=== PATIENT | male | born 1965 | race Caucasian/White ===

== ENCOUNTER 2017-12-20 15:57 | Emergency (ER) | payer OTHER ==
[~2017-12-20] VITALS: Ht 177.8 cm; Wt 113.4 kg
[~2017-12-20 15:57] MED LIST: CETI5TAB5 PO; FLNIN NAE; MULT-506 PO; OMEP20TA14 PO
[2017-12-20 16:05] VITALS: TEMP 36.6; Ht 177.8 cm; Wt 113.4 kg
[2017-12-20] MEDS ORDERED: XYLOCAINE 1%/SOD BICARB 20 ML VIAL INFIL STA (16:15)
[2017-12-20] MEDS ORDERED: FLUT0.15 NAE (16:27)
[2017-12-20] MEDS ORDERED: CETI-41 PO (16:27)
[2017-12-20] MEDS ORDERED: MoRPHine SULFATE 2 MG/ML CARP IV STA (17:26)
[2017-12-20] MEDS ORDERED: HYDROCODONE/ACETAMIN 5/325MG TAB PO ONE (17:30)
[2017-12-20] MEDS ORDERED: CEPH500C PO (17:37)
[2017-12-20] MEDS ORDERED: HYDR-5688 PO (17:37)
[2017-12-20] MEDS ORDERED: CEPHALEXIN 500MG HOME PACK 1 EA BTL PO ONE (17:45)
[2017-12-20] MEDS ORDERED: NORCO 5/325MG HOME PACK PO ONE (17:45)
[2017-12-20 17:49] VITALS: BP 147/92; PULSE 84; O2SAT 96
[2017-12-20] MEDS ORDERED: CEFAZOLIN SOD 1000MG/7.5 ML IV PUSH IV STA (17:51)
--- NOTE | 2017-12-20 18:01 | DIAGNOSTIC IMAGING REPORT ---
L FINGER(S) MIN 2 VIEWS ROUTINE HISTORY: 52 years-old Male left long/ring finger fractures acute trauma to the left third and fourth fingers status post table saw injury. COMPARISON: None available TECHNIQUE: 3 views of the fingers with attention to the third and fourth digits. FINDINGS: Acute partial amputation with comminuted fracture is noted through the mid portion of the third distal phalanx with adjacent bone fragments measuring up to 4 mm. Large soft tissue defect. Additionally, there is an acute partial amputation involving the distal aspect of the fourth digit with comminuted transverse fracture defect through the distal tuft of the fourth distal phalanx. Bone fragments measuring up to 3 mm noted along the medial aspect of the fracture. Moderate associated soft tissue swelling with bandages in place. The remaining bones appear intact. IMPRESSION: Acute partially amputation injuries of the third and fourth distal fingers with comminuted fracture defects involving the distal phalanges as above. The above report was generated using voice recognition software. It may contain grammatical, syntax or spelling errors. Electronically signed by: William Grover M.D. 12/20/2017 6:00 PM Dictated Date/Time: 12/20/2017 5:57 PM
--- NOTE | 2017-12-20 19:41 | EMERGENCY ROOM VISIT NOTE ---
ED Visit Note First contact with patient: 16:32 Chief complaint: Table saw laceration to his left long and ring finger tips HPI: This 52-year-old white male presents with his for evaluation of lacerations to the tips of his left long and ring fingers. The patient was using a table saw today and states his hand was pulled into the blade. He was using a push stick. Bleeding was controlled with pressure. He denies any numbness, tingling, or loss of motion. No other complaints. Tetanus is believed to be up-to-date. Pain is 9/10. Right hand dominant. No other fingers are involved. He has a towel wrapped around his fingers. Supplemental sheet was not completed. Previous surgeries: None Medical history: Seasonal allergies and GERD Current Medications: Prilosec, Zyrtec, Flonase, multivitamin Allergies: Erythromycin Tetanus: 2010 Family History: Noncontributory Social History: . Employed. No tobacco use. REVIEW OF SYSTEM: HEENT: No dizziness, visual problems, hearing loss, or tinnitus. There is no difficulty swallowing and no oral lesions are present. PULMONARY: No cough, shortness of breath, sputum production or hemoptysis. CARDIOVASCULAR: No chest pain, palpitations, shortness of breath or peripheral edema. GASTROINTESTINAL: No diarrhea, constipation, nausea, vomiting, or abdominal pain. GENITOURINARY: No dysuria, frequency, urgency or nocturia. NEUROLOGIC: No weakness, muscle tenderness, epilepsy or history of neurological problems. MUSCULOSKELETAL: No history of joint tenderness/swelling. No history of arthritis or arthralgias. SKIN: No rashes or lesions. PSYCHIATRIC: No history of depression or mental illness. ENDOCRINE: No history of diabetes, thyroid disorders, or abnormal hair growth. Physical Exam: Vitals: Afebrile. Reviewed and filed in patient's chart General: Well-developed, well-nourished, middle-aged white male, in no acute distress. Obvious discomfort. He is sitting on the bed. Alert and oriented. Skin: Warm and dry with good turgor. No rashes. No ecchymosis or erythema. The patient is not diaphoretic. No abrasions. The patient has a wide laceration present at the dorsal tips of his ring and long fingers. He has essentially obliterated the entire nail on the long finger. The middle of the ring finger nail is also missing. Visible bone is exposed. No foreign material is visible. Wound edges for both lacerations are very irregular. No involvement of the palmar surface. Musculoskeletal: Patient has intact motor function to the MCP, PIP, and DIP joints of all digits on the left hand. FDS and FDP functions were checked by isolation. Neurologic: Gross sensation is intact across the digits of the left hand, including the long and ring fingers. Capillary refill is equal for the pads of each finger. Data: Radiographic imaging obtained today of the digits post procedure confirmed the open fractures. These were read by radiology and reviewed by me. Impression: Open distal phalanx fractures of the left long and ring fingers with nailbed disruption. Total laceration length is 1.5 cm for each finger. Procedure: Informed oral consent was obtained for repair. Left hand was prepped with Betadine and the 2 fingers were draped with a sterile towel. Digital blocks were performed on both fingers using 6 mL 1% plain buffered lidocaine for each digit. Finger tourniquets were placed on both digits. Thorough inspection was performed. No foreign material was visible. He had extensive small fragments of bone and fingernail with each wound. These were meticulously removed using blunt dissection and sharp excision using iris scissors. Wounds were irrigated copiously using Betadine diluted with normal sterile saline under jet spray lavage. There was no finger nail or nailbed remaining on the long finger. The pad flap was brought up dorsally and closed loosely using 4-0 nylon. The ring finger had approximately three quarters of the nailbed remaining. This was repaired using 5-0 Vicryl and the remaining skin was approximated loosely using 4-0 nylon. Good wound edge approximation was achieved. Hemostasis was achieved. Pressure dressings were applied using Xeroform, gauze, and Fatmata. Plan: Patient was educated regarding today's findings as was his . Conservative care measures were discussed. He understands that the long finger is now shortened due to bone and nail loss. Possibility of an abnormal nail growing out and necessity of revision was discussed at length with him. I think that the ring finger will likely have a fairly normal nail though he is aware a ridge may develop. Patient was given Ancef 1 g IV while in the ED. He was also given 2 mg morphine IV and [place] 5 mg by mouth for pain control. Additional home pack for [place] and prescription were provided. Driving precautions were given. Additional home pack of Keflex 500 mg and a prescription were provided, to be used 4 times a day 5 days. Tylenol and ibuprofen every 6 hours as needed for mild pain. Wound care handout was provided. Sutures out in 12-14 days. He may shower but should keep the hand dry. Avoid soaking or swimming for two weeks. Return to the ER for any acute changes or signs of infection. I did speak with Dr. Gresham regarding this patient. He recommended follow-up in the office on Thursday for reexamination. Current/Historical Medications Scheduled Cephalexin Monohydrate (Keflex), 500 MG PO QID Multivitamin (Multivitamin), 1 TAB PO DAILY Scheduled PRN Cetirizine HCl (Zyrtec Allergy), 10 MG PO DAILY PRN for Seasonal Allergies Fluticasone Propionate (Nasal) (Flonase Allergy Relief), 1 SPRAY LORI DAILY PRN for CONGESTION Hydrocodone/Acetaminophen 5MG/325MG ([place] 5MG/325MG), 1-2 TABLET PO Q6H PRN for Pain Omeprazole Magnesium (Prilosec Otc), 20 MG PO DAILY PRN for Indigestion Allergies Coded Allergies: Erythromycin (Verified Allergy, Unknown, RASH, 12/20/17) Vital Signs Date Time Temp Pulse Resp B/P (MAP) Pulse Ox O2 Delivery O2 Flow Rate FiO2 12/20/17 17:49 84 18 147/92 96 Room Air 12/20/17 16:05 36.6 76 20 116/62 93 Room Air Medications Administered Medications (Trade) Dose Ordered Sig/Dick Route Start Time Stop Time Status Last Admin Dose Admin Morphine Sulfate (MoRPHine SULFATE INJ) 2 mg NOW STAT IV 12/20/17 17:26 12/20/17 17:28 DC 12/20/17 17:50 2 MG Acetaminophen/ Hydrocodone Bitart ([place] 5/325 Tab) 1 tab ONE ONCE PO 12/20/17 17:30 12/20/17 17:31 DC 12/20/17 17:51 1 TAB Acetaminophen/ Hydrocodone Bitart ([place] 5/325mg Home Pack) 1 homepack UD ONCE PO 12/20/17 17:45 12/20/17 17:46 DC 12/20/17 17:50 1 HOMEPACK Cephalexin Monohydrate (Keflex 500MG Home Pack) 1 homepack NOW ONCE PO 12/20/17 17:45 12/20/17 17:46 DC 12/20/17 17:50 1 HOMEPACK Cefazolin Sodium (Cefazolin 1000mg Iv Push) 1,000 mg NOW STAT IV 12/20/17 17:51 12/20/17 17:52 DC 12/20/17 18:00 1,000 MG Departure Information Impression Primary Impression: Open avulsion fracture of distal phalanx of finger Dispostion Home / Self-Care Condition GOOD Prescriptions Hydrocodone/Acetaminophen 5MG/325MG ([place] 5MG/325MG) Tab 1-2 TABLET PO Q6H Y for Pain, #20 TAB For Initial Treatment Prov: Raffaele Edward,P.A. 12/20/17 Cephalexin Monohydrate (Keflex) 500 Mg Cap 500 MG PO QID, #20 CAP Prov: Raffaele Edward,P.A. 12/20/17 Referrals Eddie Gresham M.D. Forms HOME CARE DOCUMENTATION FORM, SPECIAL NARCOTICS INSTRUCTIONS, MOTRIN USE, TYLENOL USE, IMPORTANT VISIT INFORMATION Patient Instructions My [facility] Additional Instructions Keep the dressings dry and intact until removed by Dr. Gresham Avoid swimming or soaking for 2 weeks you may shower but keep the dressings dry Ice and elevate to reduce pain and swelling Tylenol and Motrin every 6 hours as needed for mild discomfort [place] one to 2 tablets every 6 hours as needed for more severe pain-no driving Call Dr. Gresham tomorrow for follow-up on Thursday Sutures out in 12 days Return to the ED for any acute changes or signs of infection
== END 2017-12-20 18:16 | disposition home or self-care (01) ==
LOC: C.EDB 15:59 → C.EDD 18:16
DX: S62.633B Displaced fracture of distal phalanx of left middle finger, initial encounter for open fracture (principal); S62.635B Displaced fracture of distal phalanx of left ring finger, initial encounter for open fracture; W31.2XXA Contact with powered woodworking and forming machines, initial encounter

== ENCOUNTER → 2018-01-19 | Outpatient (CLI) | payer OTHER ==
[~2018-01-19] MED LIST changes: +CEPH500C PO; +CETI-41 PO; -CETI5TAB5 PO; -FLNIN NAE; +FLUT0.15 NAE; +HYDR-5688 PO
== END | disposition home or self-care (01) ==
LOC: C.RDSM 08:00
PROVIDERS: ATTEND Physical Medicine & Rehabilitation Sports Medicine
DX: M79.642 Pain in left hand (principal)